=== PATIENT | male | born 1975 | race Caucasian/White ===

== ENCOUNTER 2018-05-06 19:58 | Emergency (ER) | payer BC, OTHER ==
[2018-05-06 20:34] VITALS: BP 150/91
--- NOTE | 2018-05-06 21:44 | EDM.PDOC ---
ED HPI GENERAL MEDICAL PROBLEM - General Chief Complaint: Lower Extremity Injury/Pain Stated Complaint: FOOT INJURY Time Seen by Provider: 05/06/18 21:15 Source of Information: Reports: Patient History Limitations: Reports: No Limitations - History of Present Illness INITIAL COMMENTS - FREE TEXT/NARRATIVE: 42 year old male presents for evaluation and treatment of a callous to the medial right great toe. The callous has been present for years, improving and worsening in severity. He has never seen podiatry for this. Patient reports he recently developed a blister to the area which popped. He reports several open lacerations to the callous. Patient saw his PCP today who referred him to podietry, he now has an appointment scheduled for Thursday. Patient became concerned today when he appreciate increased warmth and erythema to the right great toe. No drainage from the toe. Denies any fevers, chills, nausea or vomiting. Denies any history of history of MRSA. Denies any history of diabetes. - Related Data Allergies Allergy/AdvReac Type Severity Reaction Status Date / Time No Known Allergies Allergy Verified 05/06/18 20:34 Home Meds: Home Meds Allopurinol [Zyloprim] 500 mg PO DAILY 05/06/18 [History] Colchicine 12.5 mg PO DAILY 05/06/18 [History] Dabigatran [Pradaxa] 150 mg PO BID 05/06/18 [History] Diltiazem [Cardizem CD] 180 mg PO DAILY 05/06/18 [History] Enalapril Maleate [Vasotec] 20 mg PO BID 05/06/18 [History] Flecainide [Tambocor] 100 mg PO BID 05/06/18 [History] Metoprolol Succinate 50 mg PO BID 05/06/18 [History] Past Medical History Cardiovascular History: Reports: Afib, Hypertension, Other (See Below) Other Cardiovascular History: cardioverted Musculoskeletal History: Reports: Gout, Other (See Below) Other Musculoskeletal History: right low arm surgery with screws Social & Family History - Tobacco Use Smoking Status *Q: Never Smoker - Caffeine Use Caffeine Use: Reports: Coffee - Recreational Drug Use Recreational Drug Use: No Review of Systems - Review of Systems Review Of Systems: See Below Constitutional: Denies: Chills, Fever GI/Abdominal: Denies: Nausea, Vomiting Skin: Reports: Other (right medial great toe, calleolus with surrounding erythema and increased warmth) Neurological: Denies: Numbness, Tingling, Difficulty Walking ED EXAM, GENERAL - Physical Exam Exam: See Below Exam Limited By: No Limitations General Appearance: Alert, WD/WN, No Apparent Distress Respiratory/Chest: No Respiratory Distress, Lungs Clear, Normal Breath Sounds Cardiovascular: Normal Peripheral Pulses, Regular Rate, Rhythm, No Murmur Extremities: Other (right medial great toe golf ball sized calleolus with surrounding erythema and increased warmth, does not extend beyond the great toe ; 4 1cm open lacerations to the calleolus, extensive dryness to the area) Neurological: Alert, Oriented, Normal Cognition Psychiatric: Normal Affect, Normal Mood Skin Exam: Warm, Dry, Normal Color Course - Vital Signs Last Recorded V/S: Last Vital Signs Temp 98.7 F 05/06/18 20:32 Pulse 63 05/06/18 20:32 Resp 20 05/06/18 20:32 BP 150/91 H 05/06/18 20:32 Pulse Ox 98 05/06/18 20:32 Departure - Departure Time of Disposition: 21:43 Disposition: Home, Self-Care 01 Condition: Fair Clinical Impression: Callus of foot - Discharge Information *PRESCRIPTION DRUG MONITORING PROGRAM REVIEWED*: No *COPY OF PRESCRIPTION DRUG MONITORING REPORT IN PATIENT HERI: No Instructions: Corns and Calluses Referrals: Carlos Allen Jr, MD [Primary Care Provider] - Brennan Rawls II, DPM [Physician] - Forms: ED Department Discharge Additional Instructions: Epson salt soaks for about 15-20 minutes 2 or 3 times a day. Continue to use lotion or triple antibacterial ointment to the area. Keep the area covered. take the Keflex and 1 tab twice a day for 7 days. Follow-up with podiatry as soon as you able to. [id number] Tylenol or Motrin seen for pain. Please return to the ER if your symptoms change or worsen.
== END 2018-05-06 21:56 | disposition home or self-care (01) ==
LOC: JD.ED 19:58
DX: L84 Corns and callosities (principal); I10 Essential (primary) hypertension; Z79.899 Other long term (current) drug therapy
CPT/HCPCS: 99283

== ENCOUNTER 2019-06-24 09:00 | Day surgery (SDC) | payer BC ==
[~2019-06-24 09:00] MED LIST: FLU Vacc QS2019-20(6MOS+)/PF 60 MCG/0.5 ML SYRINGE IM ONE; Lactated Ringers 1,000 ML IV SCH; Lidocaine 1%/Sod Bicarbonate in NS 8.4% 1 ML Syringe IDERM PRN; Sodium Chloride 0.9% 10 ML Syringe FLUSH PRN
[2019-06-24] MEDS ORDERED: Bupivacaine 0.5% 30 ML SDV ONE (09:44)
[2019-06-24] MEDS ORDERED: Lidocaine 1% 30 ML SDV ONE (09:44)
--- NOTE | 2019-06-24 09:47 | PCM.PREANE ---
Preanesthetic Assessment - Anesthesia/Transfusion/Family Hx Anesthesia History: Prior Anesthesia Without Reaction Family History of Anesthesia Reaction: No Transfusion History: No Prior Transfusion(s) Intubation History: Unknown - Review of Systems General: No Symptoms Pulmonary: No Symptoms (History of SUZY with CPAP, ETOH: Beers 25/month) Cardiovascular: No Symptoms (History of atrial fibrillation with cardioversion noted times 3, History of HTN, History of non-ischemic cardiomyopathy Angiogram 02/2015), Dyspnea on Exertion Gastrointestinal: No Symptoms Neurological: No Symptoms (History of Gout) Other: Reports: None, Easy Bleeding - Physical Assessment NPO Status Date: 06/23/19 NPO Status Time: 22:00 Vital Signs: HR: 55 BP: 154/87 Resp: 16 Sat: 98% Temp: 97.1F Height: 1.88 m Weight: 135.171 kg ASA Class: 3 Mental Status: Alert & Oriented x3 Airway Class: Mallampati = 3 Dentition: Reports: Normal Dentition, Caries Thyro-Mental Finger Breadths: 3 Mouth Opening Finger Breadths: 3 ROM/Head Extension: Full Lungs: Clear to Auscultation, Normal Respiratory Effort, Decreased Breath Sounds Cardiovascular: Regular Rate, Regular Rhythm, No Murmurs - Lab Values: MRSA + for Staph. All labs reviewed and noted and within acceptable ranges to proceed with scheduled procedure. - Imaging/EKG Impressions: EKG: SR rate=60, borderline prolonged CHELSI - Allergies Allergies/Adverse Reactions: Allergies Allergy/AdvReac Type Severity Reaction Status Date / Time No Known Allergies Allergy Verified 06/23/19 15:28 - Anesthesia Plan Pre-Op Medication Ordered: Beta Christian Beta Christian: Metoprolol Med Last Dose Date: 06/24/19 Med Last Dose Time: 07:30 - Acknowledgements Anesthesia Type Planned: MAC (With Ankle block placed per surgeon.) Pt an Appropriate Candidate for the Planned Anesthesia: Yes Alternatives and Risks of Anesthesia Discussed w Pt/Guardian: Yes Pt/Guardian Understands and Agrees with Anesthesia Plan: Yes PreAnesthesia Questionnaire HEENT History: Reports: Impaired Vision Cardiovascular History: Reports: Afib, Cardiomyopathy, Hypertension, Other (See Below) Other Cardiovascular History: cardioverted Respiratory History: Reports: Sleep Apnea Gastrointestinal History: Reports: None Genitourinary History: Reports: None 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 Musculoskeletal History: Reports: Gout, Other (See Below) Other Musculoskeletal History: right low arm surgery with screws Neurological History: Reports: None Psychiatric History: Reports: None Endocrine/Metabolic History: Reports: None Hematologic History: Reports: None Immunologic History: Reports: None Oncologic (Cancer) History: Reports: None Dermatologic History: Reports: None - Past Surgical History Head Surgeries/Procedures: Reports: None HEENT Surgical History: Reports: None Cardiovascular Surgical History: Reports: None Respiratory Surgical History: Reports: None GI Surgical History: Reports: None Female Surgical History: Reports: None Male Surgical History: Reports: None Endocrine Surgical History: Reports: None Neurological Surgical History: Reports: None Oncologic Surgical History: Reports: None Dermatological Surgical History: Reports: None - SUBSTANCE USE Smoking Status *Q: Never Smoker Recreational Drug Use History: No - HOME MEDS Home Medications: Home Meds Dabigatran [Pradaxa] 150 mg PO BID 05/06/18 [History] Enalapril Maleate [Vasotec] 20 mg PO BID 05/06/18 [History] Flecainide [Tambocor] 100 mg PO BID 05/06/18 [History] Metoprolol Succinate 50 mg PO BID 05/06/18 [History] Allopurinol [Zyloprim] 500 mg PO DAILY 06/23/19 [History] Chlorthalidone 25 mg PO DAILY 06/23/19 [History] Diltiazem [Cardizem CD] 120 mg PO DAILY 06/23/19 [History] - CURRENT (IN HOUSE) MEDS Current Meds: Current Medications Lactated Ringer's (Ringers, Lactated) 1,000 mls @ 125 mls/hr IV ASDIRECTED TONYA Stop: 06/24/19 23:00 Vancomycin HCl 2 gm/ Sodium (Chloride) 500 mls @ 250 mls/hr IV ONETIME ONE Stop: 06/24/19 11:59 Lidocaine/Sodium Bicarbonate (Buffered Lidocaine 1% In Ns 8.4%) 0.25 ml IDERM ONETIME PRN PRN Reason: Prior to IV Start Stop: 06/24/19 18:00 Sodium Chloride (Saline Flush) 10 ml FLUSH ASDIRECTED PRN PRN Reason: Keep Vein Open Stop: 06/24/19 18:00 Discontinued Medications Influenza Virus Vaccine (Fluzone Quad Syringe) 60 mcg IM .ONCE ONE Stop: 06/23/19 15:46
[2019-06-24] MEDS ORDERED: Propofol 200 MG/20 ML SDV ONE ×4 (09:55→11:55)
[2019-06-24] MEDS ORDERED: Midazolam 1 MG/ML 2 ML SDV ONE ×2 (09:56→11:27)
[2019-06-24] MEDS ORDERED: Lidocaine 1% 4 ML ONE (09:56)
[2019-06-24] MEDS ORDERED: fentaNYL 100 MCG/2 ML SDV ONE (09:57)
[2019-06-24] MEDS ORDERED: Vancomycin 2 GM in Sodium Chloride 0.9% 500 ML IV ONE (10:00)
[2019-06-24] MEDS ORDERED: Ondansetron 4 MG/2 ML SDV ONE ×2 (10:14→11:51)
[2019-06-24] MEDS ORDERED: ceFAZolin 1 GM Vial ONE ×2 (10:19→11:12)
[2019-06-24] MEDS ORDERED: ePHEDrine/Normal Saline 25 MG/5 ML Syringe ONE (11:53)
[2019-06-24] MEDS ORDERED: diphenhydrAMINE 50 MG/ML SDV IVPUSH PRN (11:58)
[2019-06-24] MEDS ORDERED: ePHEDrine 50 MG/ML SDV IVPUSH PRN (11:58)
[2019-06-24] MEDS ORDERED: HYDROmorphone 0.5 MG/0.5 ML Syringe IVPUSH PRN (11:58)
[2019-06-24] MEDS ORDERED: Lactated Ringers 1,000 ML ONE (11:58)
[2019-06-24] MEDS ORDERED: fentaNYL 100 MCG/2 ML SDV IVPUSH PRN (11:58)
[2019-06-24] MEDS ORDERED: Ondansetron 4 MG/2 ML SDV IVPUSH PRN (11:58)
[2019-06-24] MEDS ORDERED: Phenylephrine 1 MG in Sodium Chloride 0.9% 10 ML IV SCH (12:00)
--- NOTE | 2019-06-24 12:36 | PCM48HPAN ---
Post Anesthesia Note - EVALUATION WITHIN 48HRS OF ANESTHETIC Vital Signs in Normal Range: Yes Patient Participated in Evaluation: Yes Respiratory Function Stable: Yes Airway Patent: Yes Cardiovascular Function Stable: Yes Hydration Status Stable: Yes Pain Control Satisfactory: Yes Nausea and Vomiting Control Satisfactory: Yes Mental Status Recovered: Yes Vital Signs: Last Vital Signs Temp 36.5 C 06/24/19 09:15 Pulse 55 L 06/24/19 09:15 Resp 16 06/24/19 09:15 BP 154/87 H 06/24/19 09:15 Pulse Ox 98 06/24/19 09:15
--- NOTE | 2019-06-24 12:54 | PCM.OPNOTE ---
- General Post-Op/Procedure Note Date of Surgery/Procedure: 06/24/19 Operative Procedure(s): 1.) Chielectomy RIGHT big toe joint. 2.) Arthroplasty RIGHT hallux IP joint. 3.) Debridement ulceration, RIGHT hallux Pre Op Diagnosis: 1.) Painful/Symptomatic Hallux rigidus/limitus, RIGHT 1st MTPJ. 2.) Painful/Symptomatic Hallux Malleus, RIGHT IP joint. 3.) Painful/ Symptomatic Chronic, Ulceration, RIGHT hallux toe. Post-Op Diagnosis: Same Anesthesia Technique: Local, MAC Primary Surgeon: Brennan Rawls II Anesthesia Provider: Roxy Eaton Complications: None Condition: Good Free Text/Narrative:: Patient left the OR for recovery with vital signs stable and vascular status grossly intact, to digits 1-5, RIGHT foot.
--- NOTE | 2019-06-24 14:12 | OR ---
DATE OF OPERATION: 06/24/2019 SURGEON: Brennan Rawls II, DPM LOCATION: [facility]. ANESTHESIA: Monitored anesthesia care with local block about the right foot; provider is Roxy Eaton CRNA. HEMOSTASIS: Right pneumatic ankle tourniquet to 250 mmHg pressure. PREOPERATIVE DIAGNOSIS: 1. Painful and symptomatic chronic ulceration, right hallux. 2. Painful and symptomatic hallux limitus, right first metatarsophalangeal joint. 3. Chronic and symptomatic hallux malleus, right interphalangeal joint. POSTOPERATIVE DIAGNOSIS: 1. Painful and symptomatic chronic ulceration, right hallux. 2. Painful and symptomatic hallux limitus, right first metatarsophalangeal joint. 3. Chronic and symptomatic hallux malleus, right interphalangeal joint. OPERATION PERFORMED: 1. Loera bunionectomy and cheilectomy, right first metatarsophalangeal joint. 2. Arthroplasty, right hallux interphalangeal joint. 3. Debridement of ulceration, right hallux. DESCRIPTION OF PROCEDURE: Upon arrival and admission to the hospital, the patient was examined and cleared for surgery by the assigned anesthesia provider. IV access was obtained in the preoperative area to which the patient was given prophylactic antibiotics consisting of 2 g of Ancef and 1 g of vancomycin IV piggyback. The patient was then brought to the OR via gurney and left on the gurney. The patient was then given a combination of sedations and was adequately sedated before receiving 10 mL of a 1:1 mixture of 1% lidocaine plain and 0.5% Marcaine plain in the form of local infiltrative block about the right first metatarsophalangeal joint. The right lower extremity was wrapped with cotton Webril padding in preparation for nonsterile pneumatic ankle tourniquet which was then draped with a sterile drape. The right lower extremity was then prepped and draped in usual aseptic manner. Right lower extremity was then elevated and exsanguinated with use of an Esmarch bandage before inflating the right pneumatic ankle tourniquet to 250 mmHg pressure. The Esmarch bandage was removed, and the right lower extremity was placed back to the level of the operating room table. Attention was then directed to the right first metatarsophalangeal joint where an approximately 6 cm curvilinear incision was created medial to the extensor hallucis longus tendon starting at the hallux IPJ by 1 cm distal. This was a controlled depth skin incision taken down to the level of the subcutaneous structures with care taken to retract the vital neurovascular structures within the area as well as cauterize and/or ligate all superficial bleeders as deemed necessary. Continuous soft tissue dissection was then taken down to the level of the teno- capsular structures where a tenotomy and capsulotomy were undertaken at the hallux IP joint as well as the first metatarsophalangeal joint. The base of the proximal phalanx of the hallux which was noted to be severely arthritic with moderate to severe degenerative joint disease and bony eburnation was resected from dorsal to plantar. Likewise, the head of the intermediate phalanx was also resected from dorsal to plantar. This allowed for the hallux IPJ and the first metatarsophalangeal joint to be more fluid and not as in a frozen condition. The wound was then copiously lavaged with sterile saline solution and reapproximation of the capsular tissues was undertaken utilizing 3-0 Vicryl in a form of running interlocking simple suture knots. The subcuticular layer was reapproximated with 4-0 Vicryl in a form of simple interrupted suture knots while the skin was reapproximated with 4-0 nylon in a form of running interlocking simple suture knots. Postoperatively, an additional 10 mL of 0.5% Marcaine plain were administered about the operatory site. Upon completion of surgery, right pneumatic ankle tourniquet was deflated and was noted to digits 1 through 5 of the right lower extremity became pink indicating normal vascular perfusion had returned. The patient appeared to tolerate the procedure and anesthesia well and left the OR for recovery with vital signs being stable and vascular status intact to digits in right foot with no apparent complications. Dressings consisted of Betadine-soaked Adaptic gauze, 4x4 gauze, Kerlix, and an Viraj bandage. In Recovery, the patient received written and oral postop instructions as well as postoperative pain medication. The patient will ambulate partial weightbearing with immobilization boot from a previous surgery about his right foot and ankle. Estimated blood loss for these procedures was approximately 10 mL. There were no apparent or obvious complications. ESTIMATED BLOOD LOSS: MMODAL /[id number]
[2019-06-24 14:19] VITALS: BP 135/78; PULSE 51
== END 2019-06-24 14:00 | disposition home or self-care (01) ==
LOC: JD.SDS 09:00
PROVIDERS: ATTEND Podiatrist Foot & Ankle Surgery
DX: M20.5X1 Other deformities of toe(s) (acquired), right foot (principal); M20.31 Hallux varus (acquired), right foot; M20.21 Hallux rigidus, right foot; L97.512 Non-pressure chronic ulcer of other part of right foot with fat layer exposed; I10 Essential (primary) hypertension; I42.8 Other cardiomyopathies; I48.91 Unspecified atrial fibrillation; G47.33 Obstructive sleep apnea (adult) (pediatric); M1A.0711 Idiopathic chronic gout, right ankle and foot, with tophus (tophi); M19.071 Primary osteoarthritis, right ankle and foot; Z23 Encounter for immunization; Z99.89 Dependence on other enabling machines and devices; Z79.899 Other long term (current) drug therapy
CPT/HCPCS: 28289; 28899; 90686; J0690; J2001; J2250; J2405; J2704; J3010; J3370; J3490; J7040; J7050; J7120

== ENCOUNTER 2019-08-25 09:02 | Day surgery (SDC) | payer BC ==
[~2019-08-25 09:02] MED LIST changes: -FLU Vacc QS2019-20(6MOS+)/PF 60 MCG/0.5 ML SYRINGE IM ONE; +Lidocaine 1% 4 ML ONE; +Midazolam 1 MG/ML 2 ML SDV ONE; +Ondansetron 4 MG/2 ML SDV ONE; +Propofol 200 MG/20 ML SDV ONE; +fentaNYL 250 MCG/5 ML SDV ONE
[2019-08-25] MEDS ORDERED: Bupivacaine 0.5% 10 ML SDV ONE ×2 (09:19→11:30)
[2019-08-25] MEDS ORDERED: Lidocaine 1% 30 ML SDV ONE (09:19)
--- NOTE | 2019-08-25 09:41 | PCM.PREANE ---
Preanesthetic Assessment - Procedure Proposed Procedure: arthroplasty left first great toe and second tow debridement ulcer left great toe flexor tenotony - Anesthesia/Transfusion/Family Hx Anesthesia History: Prior Anesthesia Without Reaction Family History of Anesthesia Reaction: No Transfusion History: No Prior Transfusion(s) Intubation History: Unknown - Review of Systems General: No Symptoms Pulmonary: No Symptoms Cardiovascular: No Symptoms (non in the lasst 1.5 years ) Gastrointestinal: No Symptoms Neurological: No Symptoms Other: Reports: None - Physical Assessment NPO Status Date: 08/24/19 NPO Status Time: 20:00 Height: 1.88 m Weight: 142 kg ASA Class: 3 Mental Status: Alert & Oriented x3 Airway Class: Mallampati = 1 Dentition: Reports: Normal Dentition Thyro-Mental Finger Breadths: 3 Mouth Opening Finger Breadths: 5 ROM/Head Extension: Full Lungs: Clear to Auscultation, Normal Respiratory Effort Cardiovascular: Regular Rate, Regular Rhythm - Allergies Allergies/Adverse Reactions: Allergies Allergy/AdvReac Type Severity Reaction Status Date / Time No Known Allergies Allergy Verified 08/22/19 11:55 - Blood Blood Available: No - Anesthesia Plan Pre-Op Medication Ordered: None - Acknowledgements Anesthesia Type Planned: MAC Pt an Appropriate Candidate for the Planned Anesthesia: Yes Alternatives and Risks of Anesthesia Discussed w Pt/Guardian: Yes Pt/Guardian Understands and Agrees with Anesthesia Plan: Yes PreAnesthesia Questionnaire HEENT History: Reports: Impaired Vision Cardiovascular History: Reports: Afib, Cardiomyopathy, Hypertension, Other (See Below) Other Cardiovascular History: cardioverted Respiratory History: Reports: Sleep Apnea Gastrointestinal History: Reports: None Genitourinary History: Reports: None 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 Musculoskeletal History: Reports: Gout, Other (See Below) Other Musculoskeletal History: right low arm surgery with screws Neurological History: Reports: None Psychiatric History: Reports: None Endocrine/Metabolic History: Reports: None Hematologic History: Reports: None Immunologic History: Reports: None Oncologic (Cancer) History: Reports: None Dermatologic History: Reports: None - Past Surgical History Head Surgeries/Procedures: Reports: None HEENT Surgical History: Reports: None Cardiovascular Surgical History: Reports: None Respiratory Surgical History: Reports: None GI Surgical History: Reports: None Female Surgical History: Reports: None Male Surgical History: Reports: None Endocrine Surgical History: Reports: None Neurological Surgical History: Reports: None Musculoskeletal Surgical History: Reports: Other (See Below) Other Musculoskeletal Surgeries/Procedures:: right foot/toe procedures Oncologic Surgical History: Reports: None Dermatological Surgical History: Reports: None - SUBSTANCE USE Smoking Status *Q: Never Smoker Recreational Drug Use History: No - HOME MEDS Home Medications: Home Meds Dabigatran [Pradaxa] 150 mg PO BID 05/06/18 [History] Enalapril Maleate [Vasotec] 20 mg PO BID 05/06/18 [History] Flecainide [Tambocor] 100 mg PO BID 05/06/18 [History] Metoprolol Succinate 50 mg PO BID 05/06/18 [History] Chlorthalidone 12.5 mg PO DAILY 06/23/19 [History] Diltiazem [Cardizem CD] 120 mg PO DAILY 06/23/19 [History] allopurinoL [Zyloprim] 500 mg PO DAILY 06/23/19 [History] - CURRENT (IN HOUSE) MEDS Current Meds: Current Medications Lactated Ringer's (Ringers, Lactated) 1,000 mls @ 125 mls/hr IV ASDIRECTED TONYA Stop: 08/25/19 23:00 Lidocaine/Sodium Bicarbonate (Buffered Lidocaine 1% In Ns 8.4%) 0.25 ml IDERM ONETIME PRN PRN Reason: Prior to IV Start Stop: 08/25/19 18:00 Sodium Chloride (Saline Flush) 10 ml FLUSH ASDIRECTED PRN PRN Reason: Keep Vein Open Stop: 08/25/19 18:00 Discontinued Medications Bupivacaine HCl (Sensorcaine-Mpf 0.5%) Confirm Administered Dose 10 ml .ROUTE .STK-MED ONE Stop: 08/25/19 09:20 Fentanyl (Sublimaze) Confirm Administered Dose 250 mcg .ROUTE .STK-MED ONE Stop: 08/25/19 07:46 Lidocaine HCl (Xylocaine-Mpf 1%) Confirm Administered Dose 4 mls @ as directed .ROUTE .STK-MED ONE Stop: 08/25/19 07:46 Lidocaine HCl (Xylocaine-Mpf 1%) Confirm Administered Dose 30 ml .ROUTE .STK- MED ONE Stop: 08/25/19 09:20 Midazolam HCl (Versed 1 Mg/Ml) Confirm Administered Dose 2 mg .ROUTE .STK-MED ONE Stop: 08/25/19 07:45 Ondansetron HCl (Zofran) Confirm Administered Dose 4 mg .ROUTE .STK-MED ONE Stop: 08/25/19 07:48 Propofol (Diprivan 20 Ml) Confirm Administered Dose 200 mg .ROUTE .STK-MED ONE Stop: 08/25/19 07:46
[2019-08-25] MEDS ORDERED: ceFAZolin 1 GM Vial ONE ×2 (10:09→10:12)
[2019-08-25] MEDS ORDERED: Propofol 200 MG/20 ML SDV ONE ×3 (10:48→11:03)
[2019-08-25] MEDS ORDERED: Ketamine 500 mg/10 ML MDV ONE (10:49)
[2019-08-25] MEDS ORDERED: Lactated Ringers 1,000 ML ONE (11:08)
--- NOTE | 2019-08-25 11:47 | PCM48HPAN ---
Post Anesthesia Note - EVALUATION WITHIN 48HRS OF ANESTHETIC Vital Signs in Normal Range: Yes Patient Participated in Evaluation: Yes Respiratory Function Stable: Yes Airway Patent: Yes Cardiovascular Function Stable: Yes Hydration Status Stable: Yes Pain Control Satisfactory: Yes Nausea and Vomiting Control Satisfactory: Yes Mental Status Recovered: Yes Vital Signs: Last Vital Signs 1141 114/61 97 57 16 98.3 Temp 36.9 C 08/25/19 09:10 Pulse 60 08/25/19 09:10 Resp 16 08/25/19 09:10 BP 153/87 H 08/25/19 09:10 Pulse Ox 97 08/25/19 09:10
--- NOTE | 2019-08-25 11:58 | PCM.OPNOTE ---
- General Post-Op/Procedure Note Date of Surgery/Procedure: 08/25/19 Anesthesia Technique: Local, MAC Primary Surgeon: Brennan Rawls II Anesthesia Provider: Mercedes CAMEJO in mLs: 10 Complications: None Condition: Good Free Text/Narrative:: Patient left the OR for recovery with vital signs stable & vascular status intact, digits 1-5 LEFT foot.
[2019-08-25] MEDS ORDERED: Ketorolac 30 MG/ML SDV IVPUSH SCH (12:00)
[2019-08-25] MEDS ORDERED: Acetaminophen/oxyCODONE 325-5 MG Tab PO PRN (12:27)
--- NOTE | 2019-08-25 12:40 | CR ---
Left foot: Two views of the left foot were obtained. Comparison: No previous study. Severe degenerative change is noted within the midfoot. Plantar spur is noted. Soft tissue air is noted around the first MTP joint. Joint space narrowing is noted within the first MTP joint. Old erosions are noted around the fifth MTP joint. Bony structures are slightly osteopenic. No additional abnormality is appreciated. Impression: 1. Severe degenerative change within the midfoot. Please correlate if patient is diabetic. 2. Joint space narrowing within the first MTP joint. Soft tissue air is seen around this joint. 3. Old erosions as noted above. Plantar spur. Diagnostic code #3 This report was dictated in [place] Standard Time
[2019-08-25 13:06] VITALS: BP 131/84; PULSE 60
--- NOTE | 2019-08-25 18:48 | OR ---
DATE OF OPERATION: 08/25/2019 SURGEON: Brennan Rawls II, DPM LOCATION: [facility]. ANESTHESIA: MAC with local block about the left foot. ANESTHESIA PERSON: Mercedes Mcadams CRNA HEMOSTASIS: Left pneumatic ankle tourniquet to 250 mmHg pressure. PREOPERATIVE DIAGNOSIS: 1. Painful symptomatic hallux rigidus, left 1st metatarsophalangeal joint. 2. Painful symptomatic chronic nonhealing ulceration, left hallux. 3. 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 POSTOPERATIVE DIAGNOSIS: 1. Painful symptomatic hallux rigidus, left 1st metatarsophalangeal joint. 2. Painful symptomatic chronic nonhealing ulceration, left hallux. 3. 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 OPERATION PERFORMED: 1. Loera bunionectomy, left 1st metatarsophalangeal joint. 2. Flexor tenotomy and capsulotomy, left 2nd toe. DESCRIPTION OF PROCEDURE: Upon arrival and admission to the hospital, the patient was examined and cleared for surgery by the assigned anesthesia provider. IV access was obtained in the preoperative area, after which the patient was brought to the OR via gurney and remained on the gurney while receiving 3 g of Ancef IV piggyback. The patient was given a combination of sedations and was adequately sedated before receiving 10 mL of a 1:1 mixture of 1% lidocaine plain and 0.5% Marcaine plain in the form of a local infiltrative block about the left 1st and 2nd toes. The left lower extremity had been prepared above the ankle joint with cotton Webril padding in preparation for a nonsterile pneumatic ankle tourniquet. The left lower extremity would then be prepped and draped in the usual aseptic manner, and the left lower extremity would then be elevated and exsanguinated with the use of an Esmarch bandage before inflating the left pneumatic ankle tourniquet to 250 mmHg pressure. The Esmarch bandage was removed, and the left lower extremity was placed back to the level of the operating room table. Attention was first directed to the left 1st metatarsophalangeal joint, where an approximately 7 cm incision overlying the left 1st metatarsophalangeal joint. A McGlamry scoop elevator was utilized to free up all soft tissue plantar adhesions about the sesamoids. A power sagittal saw was used to resect a rather large medial eminence while remodeling the dorsal left hallux, making it free of osteophyte production. Likewise, the wound was then copiously lavaged with sterile saline solution and incision capsular structures allowed for a release of the adductor hallucis longus tendon at the plantar base lateral of the left hallux. A power sagittal saw was then utilized to resect from dorsal to plantar the left hallux with a slight medial wedge opening so as to prevent continued rubbing against the 2nd toe. Attention was then directed to the left 2nd DIPJ, where the area was marked appropriately and prepped in the usual aseptic manner. A #15 blade was utilized to make a stab incision at the plantar aspect of the left 2nd DIPJ. This allowed for release of the flexor tendon and the plantar capsular adhesions of the left 2nd DIPJ. The wound was then copiously lavaged with sterile saline solution, and all skin incisions were reapproximated utilizing 4-0 nylon, while the subcuticular level was reapproximated with 4-0 Vicryl and the skin with 3-0 Vicryl. Upon completion of the surgery, the left pneumatic ankle tourniquet was deflated, and it was noted that digits 1 through 5, left foot, became pink, indicating normal vascular perfusion had returned. The patient appeared to tolerate the procedure and anesthesia well and left the OR with his recovery being stable and vitals and vascular status intact, left lower extremity, with no apparent complications. In recovery, the patient received written and oral postop instructions as well as postoperative pain medication. The patient will ambulate partial weightbearing as tolerated with an immobilization boot fitted and dispensed to him in the postoperative anesthesia care unit. Once again, there were no apparent or obvious complications. ESTIMATED BLOOD LOSS: For this procedure was approximately 10 mL and considered negligible. COMPLICATIONS: There were no apparent or any other obvious complications. MMODAL /[id number]
== END 2019-08-25 13:00 | disposition home or self-care (01) ==
LOC: JD.SDS 09:02
PROVIDERS: ATTEND Podiatrist Foot & Ankle Surgery
DX: M20.22 Hallux rigidus, left foot (principal); Q66.89 Other specified congenital deformities of feet; L97.521 Non-pressure chronic ulcer of other part of left foot limited to breakdown of skin; L97.522 Non-pressure chronic ulcer of other part of left foot with fat layer exposed; I48.91 Unspecified atrial fibrillation; I10 Essential (primary) hypertension; G47.33 Obstructive sleep apnea (adult) (pediatric); M10.9 Gout, unspecified; M19.90 Unspecified osteoarthritis, unspecified site; E66.9 Obesity, unspecified; Z68.37 Body mass index [BMI] 37.0-37.9, adult; Z79.01 Long term (current) use of anticoagulants; Z79.899 Other long term (current) drug therapy; Z98.890 Other specified postprocedural states; Z99.89 Dependence on other enabling machines and devices
CPT/HCPCS: 73620-26-LT; 73620-LT; A9270-GY; J0690; J1885; J2001; J2250; J2405; J2704; J3010; J3490; J7120